=== PATIENT | female | born 1965 | race Caucasian/White ===

== ENCOUNTER → 2021-03-22 | Outpatient (CLI) | payer OTHER ==
[~2021-03-22] MED LIST: CEPHALEXIN500 MG PO; DICLOFENAC SODI75 MG PO; HYDROCODON-ACE1 EAC6 PO; LOVENOX40 MG/0.4 SQ; NORCO 7.5-3251 EACH PO; PROZAC20 MG PO; SIMVASTATIN20 MG PO; VITAMIN C500 M2 PO; VITAMIN D2 PO
== END ==
LOC: KOH-I 14:22
DX: M48.56XA Collapsed vertebra, not elsewhere classified, lumbar region, initial encounter for fracture (principal)
CPT/HCPCS: 72148